=== PATIENT | female | born 1980 | race Caucasian/White ===

== ENCOUNTER 2021-11-27 00:22 | Emergency (ER) | payer BC ==
[~2021-11-27] VITALS: Ht 167.6 cm; Wt 80.9 kg
[2021-11-27] MEDS ORDERED: acetaminophen 325mg tablet PO ONE (01:50)
[2021-11-27] MEDS ORDERED: ketorolac trometh inj. 60 MG/2 ML VIAL IM ONE (01:50)
[2021-11-27] MEDS ORDERED: diazepam inj 5 MG/ML inj. IM ONE (01:50)
[2021-11-27] MEDS ORDERED: oxyCODONE SR 10mg (sust. release) tab PO ONE (01:50)
[2021-11-27] MEDS ORDERED: LIDOcaine 5% patch TP ONE (02:05)
[2021-11-27] MEDS ORDERED: KETO10TA2 PO (05:22)
[2021-11-27] MEDS ORDERED: LIDO1ADH78 TOP (05:24)
[2021-11-27 05:39] VITALS: BP 130/75
== END 2021-11-27 05:43 | disposition home or self-care (01) ==
LOC: ER 00:23
DX: M54.59 Other low back pain (principal); Z79.899 Other long term (current) drug therapy
CPT/HCPCS: 72131; 96372; 99285; J1885; J3360

== ENCOUNTER 2021-12-18 06:44 | Emergency (ER) | payer BC ==
[~2021-12-18] VITALS: Ht 167.6 cm; Wt 79.5 kg
[~2021-12-18 06:44] MED LIST: KETO10TA2 PO
[2021-12-18] MEDS ORDERED: morphine IR (immed. release) 30mg tablet PO PRN (09:10)
[2021-12-18] MEDS ORDERED: ondansetron 4mg rapidly disintigrating tab PO ONE (09:10)
[2021-12-18 09:32] VITALS: BP 129/90
--- NOTE | 2021-12-18 09:45 | NUR ---
pt to [facility] with standby assistance.
[2021-12-18] MEDS ORDERED: MORP30TA PO ×3 (10:38→11:44)
== END 2021-12-18 11:08 | disposition home or self-care (01) ==
LOC: ER 06:44
DX: M54.42 Lumbago with sciatica, left side (principal); R53.1 Weakness
CPT/HCPCS: 99283